=== PATIENT | male | born 1965 | race Caucasian/White ===

== ENCOUNTER → 2016-11-03 | Outpatient (CLI) | payer BC | LOC: BMCIMAGING 09:53 | PROVIDERS: ATTEND Family Medicine | DX: M25.572 Pain in left ankle and joints of left foot (principal) ==

== ENCOUNTER → 2018-04-21 | Outpatient (CLI) | payer BC | LOC: BMCIMAGING 14:34 | PROVIDERS: ATTEND Family Medicine | DX: R05 Cough (principal) ==